=== PATIENT | male | born 1965 | race Caucasian/White ===

== ENCOUNTER 2017-07-08 17:08 | Inpatient (IN) ==
[2017-07-08] MEDS ORDERED: Aspirin 81 MG TAB.CHEW PO ONE (17:10)
[2017-07-08] MEDS ORDERED: *HR* Heparin 5,000 UNIT/ML VIAL IVP PRN ×2 (17:10→17:30)
[2017-07-08] MEDS ORDERED: *HR* Ticagrelor 90 MG TABLET PO ONE (17:10)
--- NOTE | 2017-07-08 17:13 | Emergency Department Note ---
Disposition Clinical Impression: ST elevation myocardial infarction (STEMI) Disposition: Home, Self-Care Condition: Critical General Adult HPI - General Chief complaint: ED Chest Pain Stated complaint: chest pain Time Seen by Provider: 07/08/17 17:09 Source: EMS Limitations: no limitations - History of Present Illness Pain Scale: 8 - Related Data Home Medications Medication Instructions Recorded Confirmed No Known Home Drugs 07/08/17 07/08/17 Allergies Allergy/AdvReac Type Severity Reaction Status Date / Time No Known Allergies Allergy Verified 07/08/17 17:09 Past Medical History - Past Medical History Medical history: Reports: hyperlipidemia Psychiatric history: Reports: no psych history - Social History Smoking Status: Current every day smoker Smokeless Tobacco Status: No Alcohol use: Reports: none Drug use: Reports: none Physical Exam - General Limitations: no limitations General appearance: alert, anxious Course Vital Signs Temperature 98.2 F 07/08/17 17:09 Pulse Rate 116 07/08/17 17:09 Respiratory Rate 22 07/08/17 17:09 Blood Pressure 131/110 07/08/17 17:09 O2 Sat by Pulse Oximetry 94 07/08/17 17:09 Temperature 98.2 F 07/08/17 17:09 Pulse Rate 110 07/08/17 17:27 Respiratory Rate 22 07/08/17 17:27 Blood Pressure 152/104 07/08/17 17:27 O2 Sat by Pulse Oximetry 96 07/08/17 17:27 Oxygen Delivery Oxygen Delivery Nasal Cannula Medical Decision Making - Lab Data Result diagrams: 07/08/17 17:10 07/08/17 17:10 Lab Results 07/08/17 07/08/17 07/08/17 Range/Units 17:10 17:10 17:10 WBC 11.8 H (4.3-11.1) K/mcL RBC 5.33 (4.19-5.50) M/mcL Hgb 16.0 (12.9-16.9) g/dL Hct 46.4 (37.5-50.1) % MCV 87.1 (83.0-100.0) fL MCH 30.0 (28.0-33.3) pg MCHC 34.5 (31.6-35.5) g/dL RDW 13.1 (11.5-14.5) % Plt Count 247 (140-400) K/mcL MPV 9.8 (9.4-12.4) fL Immature Gran % 0.4 (0-4) % Seg Neutrophils % 65.4 % Lymphocytes % 24.8 % Monocytes % 8.4 % Eosinophils % 0.6 % Basophils % 0.4 % Neutrophils # 7.7 (1.6-8.9) K/mcL Lymphocytes # 2.9 (0.6-4.6) K/mcL Monocytes # 1.0 (0.0-1.3) K/mcL Eosinophils # 0.1 (0.0-0.6) K/mcL Basophils # 0.1 (0.0-0.2) K/mcL PT 11.2 (9.4-12.1) Seconds INR 1.0 APTT 24.4 L (26.0-36.0) Seconds Sodium 138 (136-145) mEq/L Potassium 3.6 (3.5-5.1) mEq/L Chloride 106 (98-107) mEq/L Carbon Dioxide 19 L (23-29) mEq/L BUN 12 (6-20) mg/dL Creatinine 1.42 H (0.70-1.30) mg/dL Est GFR ( Amer) > 60 (> 60) Est GFR (Non-Af Amer) 52 L (> 60) BUN/Creatinine Ratio 8 (6-26) Glucose 144 H (70-105) mg/dL Calculated Osmolality 288 (280-300) Calcium 9.6 (8.6-10.3) mg/dL Magnesium 2.1 (1.6-2.6) mg/dL Troponin I < 0.03 (< 0.04) ng/mL Attestation Statement - Attestation Attestation: I examined this patient and my medical decision-making was reviewed with the Resident Physician. I agree with the documented findings, disposition and treatment plan as described except to the extent set forth below. [id number] time provided Patient arrives complaining of chest pain. STEMI pattern identified. STEMI alert activated. Patient to go to the [facility]. Protocol orders initiated
[2017-07-08] MEDS ORDERED: *HR* Ticagrelor 90 MG TABLET ONE (17:14)
[2017-07-08] MEDS ORDERED: Aspirin 81 MG TAB.CHEW ONE (17:15)
[2017-07-08] MEDS ORDERED: *HR* Heparin 5,000 UNIT/ML VIAL ONE (17:15)
[2017-07-08] MEDS ORDERED: 0.9 % Sodium Chloride 1,000 ML ONE ×2 (17:15→17:17)
[2017-07-08] MEDS ORDERED: Verapamil 5 MG/2 ML VIAL ONE (17:17)
[2017-07-08] MEDS ORDERED: *HR* FentaNYL (PF) 250 MCG/5 ML VIAL ONE (17:17)
[2017-07-08] MEDS ORDERED: *HR* Midazolam HCl 5 MG/5 ML VIAL IVP ONE (17:17)
[2017-07-08] MEDS ORDERED: *HR* Heparin 10,000 UNIT/10 ML VIAL ONE (17:18)
[2017-07-08] MEDS ORDERED: Heparin 1,000 UNITS/500 mL 500 ML ONE (17:18)
[2017-07-08] MEDS ORDERED: *HR* Morphine 2 MG/ML SYRINGE IVP ONE (17:18)
[2017-07-08] MEDS ORDERED: ISOVUE-370 200 ML INFUS..BTL IV ONE (17:18)
[2017-07-08] MEDS ORDERED: Nitroglycerin 1,000 MCG/10 ML VIAL IV ONE (17:18)
--- NOTE | 2017-07-08 17:19 | Emergency Department Note ---
Disposition Clinical Impression: ST elevation myocardial infarction (STEMI) Qualifiers: Involved coronary artery: unspecified coronary artery Qualified Code(s): I21.3 - ST elevation (STEMI) myocardial infarction of unspecified site Disposition: Home, Self-Care Condition: Critical Forms: ED Satisfaction Letter Time of Disposition: 17:33 Chest Pain HPI - General Chief Complaint: ED Chest Pain Stated Complaint: chest pain Time Seen by Provider: 07/08/17 17:09 Source: EMS Limitations: no limitations Vital Signs Reviewed: Yes Nursing Notes Reviewed: Yes - History of Present Illness HPI Narrative: Mr. Abdi presents from home by squad for evaluation of chest pain. Patient was doing yardwork we had acute abrupt onset left-sided sharp stabbing chest pain was nonradiating. Associated with dyspnea and nausea. Rated 10/10 at its onset. Patient received 324 mg aspirin chew in route as well as supplemental nitroglycerin 3 which improved his pain to 8/10. This was given after squad obtained at to lead EKG; they were unable to obtain a 12-lead. PMH: None Daily medications: None Severity scale (1-10): 8 - Related Data Allergies Allergy/AdvReac Type Severity Reaction Status Date / Time No Known Allergies Allergy Verified 07/08/17 17:09 Limitations: ROS unobtainable due to patients medical condition Chest Pain PMH - Past Medical History Medical history: Reports: hyperlipidemia Psychiatric history: Reports: no psych history - Social History Smoking Status: Current every day smoker Alcohol use: Reports: none Drug use: Reports: none Physical Exam Vital Signs Reviewed General: Patient is alert, oriented, and in acute distress-he is wincing in pain , holding his chest, diaphoretic Head: atraumatic, normocephalic Eye: normal appearance, no scleral icterus, no conjunctival injection ENT: mucous membranes moist, normal external ear exam Neck: normal inspection, trachea midline, full ROM Chest: normal inspection, symmetric chest rise Respiratory: Good respiratory effort. Bilateral breath sounds are clear without wheezing, crackles, or rhonchi. Cardiovascular: Tachycardic rate and regular. No clicks, rubs, gallops, or murmors. Normal heart sounds. Bilateral radial pulses 2/4 and equal. Musculoskeletal: Spontaneously moving all extremities. Skin: Cool, diaphoretic. Neuro: Alert and oriented x4. Sensation light touch intact. Psych: Patient's affect is appropriate for situation. - General Limitations: no limitations General appearance: alert, anxious Course Course Narrative: 12-lead EKG dated 08 Jul 2017 at 17:07 interpreted as sinus tachycardia with a rate of 116. Normal intervals. Normal axis. ST elevation through V2, V3, V4, V5, V6 7: At maximum elevation in V4. No reciprocal changes. No previous EKG for comparison. STEMI alert called. I discussed the patient with Dr. Cassidy will come evaluate the patient. He is already in facility. Patient taken [employer]. Vital Signs Temperature 98.2 F 07/08/17 17:09 Pulse Rate 116 07/08/17 17:09 Respiratory Rate 22 07/08/17 17:09 Blood Pressure 131/110 07/08/17 17:09 O2 Sat by Pulse Oximetry 94 07/08/17 17:09 Temperature 98.2 F 07/08/17 17:09 Pulse Rate 116 07/08/17 17:12 Respiratory Rate 19 07/08/17 17:12 Blood Pressure 131/110 07/08/17 17:12 O2 Sat by Pulse Oximetry 93 07/08/17 17:12 Oxygen Delivery Oxygen Delivery Room Air
[2017-07-08] MEDS ORDERED: *HR* Morphine 2 MG/ML SYRINGE ONE (17:20)
[2017-07-08 17:27] LABS: Basophils # 0.1 K/mcL (0.0-0.2); Basophils % 0.4 %; Eosinophils # 0.1 K/mcL (0.0-0.6); Eosinophils % 0.6 %; Hematocrit 46.4 % (37.5-50.1); Immature Granulocytes % 0.4 % (0-4); Lymphocytes # 2.9 K/mcL (0.6-4.6); Lymphocytes % 24.8 %; Mean Corpuscular HGB Conc 34.5 g/dL (31.6-35.5); Mean Corpuscular Volume 87.1 fL (83.0-100.0); Mean Platelet Volume 9.8 fL (9.4-12.4); Monocytes % 8.4 %; Neutrophils # 7.7 K/mcL (1.6-8.9); Platelet Count 247 K/mcL (140-400); Red Blood Count 5.33 M/mcL (4.19-5.50); Red Cell Distribution Width 13.1 % (11.5-14.5); Segmented Neutrophils % 65.4 %
[2017-07-08 17:32] LABS: Prothrombin Time 11.2 Seconds (9.4-12.1)
[2017-07-08 17:35] LABS: Activated Partial Thrombo Time 24.4 Seconds (26.0-36.0)
[2017-07-08] MEDS ORDERED: Ondansetron 4 MG/2 ML VIAL IVP PRN (17:38)
--- NOTE | 2017-07-08 17:38 | Pre-Sedation Evaluation ---
Pre-sedation evaluation - Pre-sedation checklist Date of procedure: 07/08/17 Procedure: 1740 Recent Vitals: Last Vital Signs Temp 98.2 F 07/08/17 17:09 Pulse 110 07/08/17 17:27 Resp 22 07/08/17 17:27 BP 152/104 07/08/17 17:27 Pulse Ox 96 07/08/17 17:27 H&P (including ROS) documented in medical record: Yes Previous reaction to sedatives/anesthetics: No Dietary Status: NPO after Midnight Airway Assessment: Patient can open mouth completely, TMJ function normal ASA Classification *see protocol: CLASS II-Mild systemic disease, E-EMERGENCY- Add to any of the above to indicate emergent Plan of Care: Pt appropriate candidate for procedure/moderate/conscious sedation , Risks/benefits of procedure/sedation discussed w/ patient/family, If not NPO; Risk of intake outweiged by necessity to perform procedure
[2017-07-08] MEDS ORDERED: Tirofiban 12.5 MG/250ML 12.5 MG/250 ML BAG IVC SCH (17:45)
[2017-07-08 17:55] LABS: BUN/Creatinine Ratio 8 (6-26); Blood Urea Nitrogen 12 mg/dL (6-20); Calcium 9.6 mg/dL (8.6-10.3); Carbon Dioxide 19 mEq/L (23-29); Chloride 106 mEq/L (98-107); Glucose 144 mg/dL (70-105); Magnesium 2.1 mg/dL (1.6-2.6); Osmolality,Calculated 288 (280-300); Potassium 3.6 mEq/L (3.5-5.1); Sodium 138 mEq/L (136-145); Troponin I < 0.03 ng/mL (< 0.04); eGFR For African Americans > 60 (> 60); eGFR For Non-African Americans 52 (> 60)
[2017-07-08] MEDS ORDERED: Nitroglycerin 25 MG/250 ML INFUS..BTL IVC ONE (18:01)
[2017-07-08] MEDS ORDERED: *HR* Midazolam HCl 2 MG/2 ML VIAL ONE (18:08)
[2017-07-08] MEDS ORDERED: *HR* Morphine 2 MG/ML SYRINGE IVP PRN (18:17)
--- NOTE | 2017-07-08 18:21 | Cardiology History & Physical ---
Date of Encounter: 07/08/17 Time of Encounter: 18:00 Assessment and Plan (1) ST elevation myocardial infarction (STEMI) Current Visit: Yes Status: Acute A/R/B of emergent LHC discussed with patient, he is aware and agreeable with proceeding. Aspirin, brilinta, heparin, TTE. Cardiac rehab Total critical care time: 1 hour. The assessment and plan as outlined above was discussed with the patient and/or family members who expressed understanding and agreement. All questions were answered. Qualifiers: Involved coronary artery: LAD coronary artery Qualified Code(s): I21.02 - ST elevation (STEMI) myocardial infarction involving left anterior descending coronary artery (2) FRANK (acute kidney injury) Current Visit: Yes Status: Acute FRANK not noted until after LHC when labs returned. NS will be given. The assessment and plan as outlined above was discussed with the patient and/or family members who expressed understanding and agreement. All questions were answered. History of Present Illness Chief complaint: chest pain HPI: Mr. Abdi is a 52 year old male with no previous cardiac history presents with 10 /10 chest pain radiating across chest that started out as dull pressure then with sharp pain and dyspnea. Improved minimally and temporarily with NTG and aspirin. EKG shows anterolateral STEMI and emergently taken to [facility]. Past Med Surg Social Fam HX - Past Medical History Medical history: hyperlipidemia Psychiatric history: no psych history - Social History Smoking Status: Current every day smoker Smokeless Tobacco Status: No Alcohol use: none Drug use: none Medications and Allergies No Known Home Drugs 07/08/17 [History] 3 Allergy/AdvReac Type Severity Reaction Status Date / Time No Known Allergies Allergy Verified 07/08/17 17:09 All Systems Review: The remainder of the systems were reviewed and are negative - Constitutional Constitutional: no chills, no fever(s) - EENT Eyes: no blurred vision, no loss of vision Nose, mouth and throat: no bleeding gums, no epistaxis - Cardiovascular Cardiovascular: chest pain at rest, chest pain with exertion - Respiratory Respiratory: no hemoptysis, no wheezing - Gastrointestinal Gastrointestinal: no hematemesis, no hematochezia - Genitourinary Genitourinary: no hematuria, no nocturia - Musculoskeletal Musculoskeletal: no abnormal gait, no myalgias - Integumentary Integumentary: no erythema, no rash - Neurological Neurological: no abnormal speech, no syncope - Psychiatric Psychiatric: no hallucinations, no panic attacks - Hematological/Lymphatic Hematologic/Lymphatic: no easy bleeding, no easy bruising Physical Examination Vital Signs, Last 4 Hours Temp Pulse Resp BP Pulse Ox 07/08/17 17:27 110 22 152/104 96 07/08/17 17:20 112 11 131/110 97 07/08/17 17:12 116 19 131/110 93 07/08/17 17:09 98.2 F 116 22 131/110 94 General: Conversant, Other (mild distress) HEENT: Atraumatic Neck: No JVD Cardiac: Reg Rate and Rhythm Lungs: Normal Breath Sounds Neuro: Alert and responsive Abdomen: Soft Skin: No rashes noted on visualized skin Musculoskeletal: No Chest Wall Tenderness Extremities: No Edema Results 07/08/17 17:10 07/08/17 17:10 Lab Results 07/08/17 07/08/17 07/08/17 17:10 17:10 17:10 WBC 11.8 H Hgb 16.0 Hct 46.4 Plt Count 247 INR 1.0 APTT 24.4 L Sodium 138 Potassium 3.6 Chloride 106 Carbon Dioxide 19 L BUN 12 Creatinine 1.42 H Glucose 144 H Calcium 9.6 Magnesium 2.1 Troponin I < 0.03 - EKG Interpretation EKG results cardiology: personally reviewed, sinus rhythm (anterolateral current of injury)
[2017-07-08] MEDS ORDERED: Nitroglycerin 25 MG/250 ML INFUS..BTL IVC SCH (18:30)
--- NOTE | 2017-07-08 18:33 | Invasive Diagnostic Lab Proc ---
Name: Juan Jose Abdi Date of Study: 07/08/2017 Date: 1965 Ht: 70.9in Medical Record#: [id number] Age: 52 Wt: 249.12lb Gender: Male BSA: 2.31 Order #: [id number] BMI: 34.88 Physicians Procedure Physician: Reynaldo Cassidy MD, [facility] Referring MD: Referring MD: Staff Name Position Time In Desi Bella RN Monitor 05:39 PM Luz Maria Escobar RN Wash Box Operator 05:39 PM Heydi Nuno RT (R) Scrub 05:40 PM Indications Indication STEMI Procedures Performed Procedure L HRT ARTERY/VENTRICLE ANGIO PRQ CARD AMARIS STENT W/ANGIO 1 VSL Pre-Procedure Checklist Informed consent is complete signed and on chart. H&P is on chart. ID band is on and ID verified with patient. Patient NPO for procedure The procedure was described for the patient and questions were answered. Blood Pressure: 131/110 ECG is on chart. Rhythm: Sinus Tachycardia Plan of Care Patient will tolerate the procedure without complications. Adequate level of comfort will be maintained. Hemodynamics will remain stable Patient will recover from procedure without complications. Respiratory function will be maintained. Cardiac rhythm will remain stable. Patient temperature will be maintained. Patient and/or family have verbalized understanding of the procedure. Patient Education Chief Complaint/Reason for Test: Cardiac Cath Developmental Category: Adult (18-64 years) Developmentally Appropriate for Age: Yes Learning Barriers: None Education Needs: Procedure Education Method: Verbal Information Taught: Cardiac Cath Educational Evaluation: Able to repeat information Intravenous Access Time IV Size Location DC'd Fluid/Drip Rate Units RN 05:21 PM 18g 1 1/4" Patent On Arrival Rt Luz Maria Amaya RN 05:21 PM 18g 1 1/4" Patent On Arrival Lt Luz Maria Amaya RN Allergies No Known Allergies Vital Signs Time BP (mmHg) HR (bpm) O2 Sat. RR (bpm) LOC 05:21 PM 131 / 110 116 93 % 19 5 = Fully awake and oriented or at pre-proc level 05:41 PM / % 5 = Fully awake and oriented or at pre-proc level 05:41 PM / % 5 = Fully awake and oriented or at pre-proc level 05:56 PM / % 5 = Fully awake and oriented or at pre-proc level 05:38 PM 129 / 101 103 99 % 05:43 PM 143 / 99 101 98 % 05:48 PM 153 / 91 134 97 % 05:53 PM 146 / 89 105 97 % 05:58 PM 153 / 87 101 99 % 06:03 PM 134 / 79 101 97 % 06:08 PM 140 / 83 102 96 % Procedural Medications Time Medication Dose Units Method Given By 05:41 PM Oxygen 2 L/min nasal cannula Luz Maria Escobar RN 05:43 PM Lidocaine 2% 0.5 ml Subcutaneous Reynaldo Cassidy MD, FAC 05:43 PM Versed 2 mg Intravenous 50 05:43 PM Fentanyl 50 mcg Intravenous Luz Maria Escobar RN 05:44 PM Heparin 1000 units Nitroglycerin 200 mcg Verapamil 2.5 mg Intraarterial Reynaldo Cassidy MD, FACC 05:45 PM Versed 2 mg Intravenous Luz Maria Escobar RN 05:45 PM Fentanyl 50 mcg Intravenous Luz Maria Escobar RN 05:51 PM Aggrastat Bolus: 58 ml Intravenous Luz Maria Escobar RN 05:51 PM Aggrastat 12.5mg/250ml 21 ml/hr Intravenous Luz Maria Escobar RN 05:51 PM Nitroglycerin 200 mcg Intracoronary Reynaldo Cassidy MD 05:52 PM Versed 1 mg Intravenous Luz Mraia Escobar RN 05:52 PM Fentanyl 50 mcg Intravenous Luz Maria Escobar RN 05:59 PM Heparin 2000 units Intravenous Luz Maria Escobar RN 06:05 PM Nitroglycerin 10 mcg/min Intravenous Luz Maria Escobar RN 06:07 PM Versed 2 mg Intravenous Luz Maria Escobar RN 06:07 PM Fentanyl 25 mcg Intravenous Luz Maria Escobar RN 06:10 PM Nitroglycerin 20 mcg/min Intravenous Luz Maria Escobar RN Marvin Score Preprocedure Postprocedure Activity 2- Moves 4 extremities sustained head lift Activity 2- Moves 4 extremities sustained head lift Circulation 2- SBP +/= 20 points of pre-anesthetic level Circulation 2- SBP +/= 20 points of pre-anesthetic level Consciousness 2- Awake and alert oriented x 3 Consciousness 2- Awake and alert oriented x 3 O2 Saturation 2- Able to maintain O2 satruation of 92% on room air O2 Saturation 2- Able to maintain O2 satruation of 92% on room air Respiratory 2- Able to deep breathe and cough well Respiratory 2- Able to deep breathe and cough well Total Score 10 Total Score 10 Contrast Agent: Isovue Diagnostic Contrast: 129 ml Total Contrast: 129 ml Fluoro Dose: 639 mGy Activated Clotting Time Time Seconds to Clot 05:59 PM 167 Procedure Log Time Note Enter By 05:33 PM Pt arrived to quality control lab tech 2 at 17:33 [email or web address] 05:34 PM Physicyasmany paged/called 17:34. [email or web address] 05:34 PM Physican responded and notified patient is ready 17:34 [email or web address] 05:34 PM Physician arrived 17:34 [email or web address] 05:35 PM Procedure start 17:35 tsoummers 05:36 PM CathStat 05:36 PM Vitals capture started with the following parameters, Patient=Adult, Interval=5 min, Initial Vicbiegd=896 mmHg, Deflation Rate=5 mmHg, Cuff placed on Right Arm 05:37 PM Vitals capture started with the following parameters, Patient=Adult, Interval=5 min, Initial Pfujszmd=226 mmHg, Deflation Rate=5 mmHg, Cuff placed on Right Arm 05:38 PM RJ=235 bpm, HBKZ=860/101 mmhg, SpO2=99.0 %, Comment=ST 05:39 PM Desi Bella RN Position: Monitor Time in: 17:34 oummers 05:40 PM Luz Maria Escobar RN Position: Wash Box Operator Time in: 17:34 oumm 05:40 PM Heydi Nuno RT (R) Position: Scrub Time in: 17:34 [email or web address] 05:40 PM Patient charges- Angio tray pack, Navilyst 3mm J, Pulse Oximetry and ACIST tubing and transducer tsoumm 05:40 PM Hair removed from procedure site in procedure lab using clippers. Right wrist prepped with Chloraprep by Desi Bella RN, then patient was draped. Skin intact. [email or web address] 05:41 PM Meet and greet completed oumm 05:41 PM Sign in performed according to hospital policy. [email or web address] 05:41 PM Time: 17:41 Oxygen on at 2 L/min per nasal cannula by Luz Maria Escobar RN [email or web address] 05:41 PM Time: 17:41 Patient comfortable and pain free: No tsoummers 05:41 PM Time: 17:41LOC: 5 = Fully awake and oriented or at pre-proc level tsoummers 05:41 PM Recorded ECG: LD=082 Condition=Condition 1 05:41 PM Pressure channel 1 zero failed. 05:41 PM Pressure channel 1 zero failed. 05:42 PM Pressure channel 1 zero failed. 05:42 PM Pressure channel 1 zero failed. 05:42 PM Pressure channel 1 zeroed. 05:42 PM Clinical Presentation: STEMI or equivalent 05:43 PM JS=669 bpm, UVOL=952/99 mmhg, SpO2=98.0 %, Comment=ST 05:43 PM Time out performed according to hospital policy 05:43 PM Time: 17:43 0.5 ml Lidocaine 2% to right radial Subcutaneous Given by Reynaldo Cassidy MD, [facility] mm 05:43 PM Time: 17:43 Versed 2 mg Intravenous Given by 50 tsjace 05:44 PM Time: 17:43 Fentanyl 50 mcg Intravenous Given by Luz Maria Escobar RN [email or web address] 05:44 PM Access obtained by percutaneous puncture. 6Fr 10cm Terumo Glidesheath sheath placed in right Radial artery. [id number] 05:44 PM Time: 17:44 Patient given 1,000 units Heparin, 200 mcg Nitroglycerin, and 2.5 mg Verapamil Intraarterial by Reynaldo Cassidy MD, [facility]. This is given to reduce risk of vessel spasm and thrombosis. mm 05:44 PM patient received 4000unites heparin IVP per ED mm 05:44 PM 0.035 260cm Navilyst 3mmJ wire [id number] 05:45 PM Time: 17:45 Versed 2 mg Intravenous Given by Luz Maria Escobar RN jace 05:45 PM Time: 17:45 Fentanyl 50 mcg Intravenous Given by Luz Maria Escobar RN 05:45 PM Inflation device was opened. tsmm 05:45 PM 6Fr CLS 3.0 Runway guide catheter was used to cannulate the PCI vessel successfully. reused? No tsoummers 05:45 PM J wire removed mm 05:46 PM Recorded Pressure: Ao, HB=589, Condition=Condition 1 (Aorta) Ao 118/82/100 05:46 PM LCA angiography performed in multiple views. mm 05:48 PM .[address] [place] 190cm guide wire across target lesion- successful. reused? No tsoummers 05:48 PM OT=092 bpm, SMQX=230/91 mmhg, SpO2=97.0 %, Comment=ST 05:49 PM 3.0mm x 20mm Synergy drug-eluting stent across target lesion- successful Lot #[id number] mm 05:50 PM Stent deployed @ 16 she for 18 seconds tsoumm 05:50 PM Lesion found in Proximal LAD. Pre Stenosis: 90 Pre NATHANIEL Flow: 3: Complete and Brisk Flow/Perfusion david 05:50 PM Proximal Left Anterior Descending Coronary Artery with 90% stenosis. If graft is supplying this territory, 0 % stenosis. jace 05:51 PM Time: 17:51 Aggrastat Bolus: 58 ml Intravenous Given by Luz Maria Escobar RN Hernandes pump [place] 05:51 PM Time: 17:51 Aggrastat 12.5mg/250ml 21 ml/hr Intravenous Given by Luz Maria Escobar RN Hernandes pump imanigricel 05:51 PM Stent delivery system removed intact. gricel 05:52 PM Recorded Pressure: Ao, TU=249, Condition=Condition 1 (Aorta) Ao 112/66/86 05:52 PM Time: 17:51 Nitroglycerin 200 mcg Intracoronary Given by Reynaldo Cassidy MD jace 05:52 PM Time: 17:52 Versed 1 mg Intravenous Given by Luz Maria Escobar RN 05:52 PM Time: 17:52 Fentanyl 50 mcg Intravenous Given by Luz Maria Escobar RN 05:53 PM IS=915 bpm, IIXO=138/89 mmhg, SpO2=97.0 %, Comment=ST 05:56 PM Time: 17:41 Patient comfortable and pain free: Yes david 05:56 PM Time: 17:41LOC: 5 = Fully awake and oriented or at pre-proc level mmgricel 05:56 PM Guide wire removed intact. gricel 05:57 PM Guide catheter removed intact. jace 05:58 PM 5Fr TIG catheter inserted over the wire DNC gricel 05:58 PM GX=384 bpm, OTIN=037/87 mmhg, SpO2=99.0 %, Comment=ST 05:58 PM RCA angiography performed in multiple views. gricel 05:58 PM Recorded Pressure: Ao, PN=912, Condition=Condition 1 (Aorta) Ao 123/80/101 05:59 PM Coronary Dominance: right [place] 05:59 PM At 17:59 the ACT was 167 seconds. [place] 06:00 PM Time: 17:59 Heparin 2000 units Intravenous Given by Luz Maria Escobar RN 06:00 PM Recorded Pressure: Ao, II=041, Condition=Condition 1 (Aorta) Ao 115/82/98 06:01 PM Lesion found in Mid Circumflex. Pre Stenosis: 60 Pre NATHANIEL Flow: [facility] 06:01 PM Circumflex, Obtuse Marginal, Left Posterior Descending, and Left Posterolateral Coronary Arteries with 60 % stenosis. If graft is supplying this area, 0 % stenosis [facility] 06:03 PM PI=051 bpm, FDZR=191/79 mmhg, SpO2=97.0 %, Comment=ST 06:05 PM Time: 18:05 Nitroglycerin 10 mcg/min Intravenous Given by Luz Maria Escobar RN 06:05 PM Catheter removed [facility] 06:05 PM 5Fr Pigtail [facility] PM Bolus angiogram of left Ventricle complete: 10 ml/sec for a total of 30 mls [facility] 06[facility]06 PM Pressure channel 1 zeroed. 06:06 PM Recorded Pressure: LV, RO=406, Condition=Condition 1 (Left Ventricle) LV 152/21/35 06:07 PM Recorded Pressure: LV, Ao, HR=99, Condition=Condition 1 (Left Ventricle) LV 161/13/52, (Aorta) Ao 155/98/124 06:07 PM Time: 18:07 Versed 2 mg Intravenous Given by Luz Maria Escobar RN 06:07 PM Time: 18:07 Fentanyl 25 mcg Intravenous Given by Luz Maria Escobar RN 06:07 PM [facility] 06:08 PM KP=152 bpm, WAVI=456/83 mmhg, SpO2=96.0 %, Comment=ST 06:08 PM Procedure completed at 18:08 [facility] PM Sign out completed: Radiation Dose 638.99 mGy Fluoro Time: 4.9 Isovue 370 - 200ml contrast 129 ml given by Reynaldo Cassidy MD, [facility]. Complications: NoneCardiac Rehab Consult needed: YesConfirmed administered medications: Yes [facility] 06[facility] PM Isovue 370 - 200ml,2 Bottle(s) used. [facility] 06:10 PM Arterial sheath pulled, Vasc Band closure device used and was Successful S/N. mmgricel 06:10 PM 10 ml air in Vasc Band. 06:11 PM Time: 18:10 Nitroglycerin titrated up to 20 mcg/min Intravenous Given by Luz Maria Escobar RN jace 06:11 PM Time: 17:56 Patient comfortable and pain free: Yes 06:11 PM Time: 17:56LOC: 5 = Fully awake and oriented or at pre-proc level tsoummgricel 06:12 PM Post ECG Sinus Tachycardia tsoummgricel 06:12 PM Post Blood Pressure 140/83 tsoummgricel 06:12 PM 18:12 Post Pulses Rt Radial 1+ gricel 06:13 PM Information taught Cardiac Cath, PCI, and Vasc Band [facility] 06:13 PM Education needs Procedure, Plan of Care, and Responsibilities of Patient in Care mmgricel 06:13 PM Learning barriers :None [facility] 06:13 PM Education Methods Verbal [facility] 06:13 PM Education evaluation Able to repeat information [facility] 06:13 PM Site status No bleeding/hematoma - Rt Wrist as reported by Heydi Nuno RT (R) at 18:13 [facility] 06:13 PM Plavix, Effient or Brilinta given Yes, Given per ED 90mg Dr. Cassidy aware [facility] 06:14 PM Complications: None mmgricel 06:14 PM Family placed in consult room. tsoudavid 06:14 PM Fluoro Time: 4.9 imanimmgricel 06:14 PM Isovue 370 - 200ml contrast [address] Cassidy. [facility] 06:14 PM Radiation Dose 638.99 mGy [facility] 06:21 PM Report given to Edita DAVIS Pt taken to ICU Room #12. 18:20 [facility] Complications Complication None Hemodynamics Pressures Site Systolic/A Wave Diastolic/V Wave Mean AO 118 82 100 AO 112 66 86 AO 123 80 101 AO 115 82 98 LV 152 21 35 LV 161 13 52 AO 155 98 124 Post Procedure Information Blood Pressure: 140/83 mmHg Rhythm: Sinus Tachycardia Post procedural instructions were given Closure Device Time Device Success/Fail 07/08/2017 6:14:00 PM Mechanical Compression Successful Site Checks Time Location Status Staff Sheath In? Note 06:13 PM Rt Wrist No bleeding/hematoma Heydi Nuno RT (R) Pulses Time Site Pre-Procedure Post-Procedure Note 6:12:00 PM Rt Radial 1+ Updated by Desi Bella RN on 07/08/2017 6:25:29 PM electronically signed on 07/08/2017 6:26:01 PM with status of Final
[2017-07-08] MEDS: 0.9 % Sodium Chloride 1,000 ML IVC SCH (18:47)
[2017-07-08] MEDS ORDERED: *HR* Ticagrelor 90 MG TABLET PO SCH (21:00)
[2017-07-09 04:28] LABS: Basophils % 0.2 %; Eosinophils # 0.1 K/mcL (0.0-0.6); Eosinophils % 0.4 %; Hematocrit 42.6 % (37.5-50.1); Immature Granulocytes % 0.4 % (0-4); Lymphocytes # 1.4 K/mcL (0.6-4.6); Lymphocytes % 10.4 %; Mean Corpuscular HGB Conc 33.6 g/dL (31.6-35.5); Mean Corpuscular Hemoglobin 29.7 pg (28.0-33.3); Mean Corpuscular Volume 88.6 fL (83.0-100.0); Mean Platelet Volume 9.9 fL (9.4-12.4); Monocytes # 0.9 K/mcL (0.0-1.3); Monocytes % 6.4 %; Neutrophils # 11.3 K/mcL (1.6-8.9); Platelet Count 192 K/mcL (140-400); Red Blood Count 4.81 M/mcL (4.19-5.50); Red Cell Distribution Width 13.2 % (11.5-14.5); Segmented Neutrophils % 82.2 %
[2017-07-09 04:36] LABS: Hemoglobin 14.3 g/dL (12.9-16.9)
[2017-07-09 04:50] LABS: BUN/Creatinine Ratio 11 (6-26); Blood Urea Nitrogen 10 mg/dL (6-20); Calcium 8.7 mg/dL (8.6-10.3); Carbon Dioxide 24 mEq/L (23-29); Chloride 107 mEq/L (98-107); Glucose 106 mg/dL (70-105); Osmolality,Calculated 283 (280-300); Potassium 4.4 mEq/L (3.5-5.1); Sodium 137 mEq/L (136-145); eGFR For African Americans > 60 (> 60); eGFR For Non-African Americans > 60 (> 60)
[2017-07-09] MEDS ORDERED: *HR* Enoxaparin 40 MG/0.4 ML SYRINGE SQ SCH (06:00)
[2017-07-09] MEDS: 0.9 % Sodium Chloride 1,000 ML IVC SCH (06:05)
[2017-07-09] MEDS ORDERED: Nicotine 21 MG PATCH.TD24 TD SCH (09:00)
[2017-07-09] MEDS ORDERED: Aspirin 81 MG TAB.CHEW PO SCH (09:00)
--- NOTE | 2017-07-09 09:15 | Cardiology Progress Note ---
Date of Encounter: 07/09/17 Time of Encounter: 08:30 Assessment and Plan (1) STEMI (ST elevation myocardial infarction) Current Visit: Yes Status: Acute Acute anterolateral STEMI s/p successful PTCA/AMARIS to pLAD. TTE pending. Vitals, labs stable this AM. No arrhythmia noted per telemetry review. Chest pain free upon exam. Cardiac rehab, DAPT (asa + plavix), BB, and statin. Post PCI education provided. Plan to transfer to later this afternoon. Continue to monitor. Qualifiers: Involved coronary artery: LAD coronary artery Qualified Code(s): I21.02 - ST elevation (STEMI) myocardial infarction involving left anterior descending coronary artery (2) Tobacco abuse Current Visit: Yes Status: Acute Smoking cessation counseling provided. Nicotine patch as inpt. (3) HLD (hyperlipidemia) Current Visit: Yes Status: Acute Reports non-adherence to statin as outpt. Resume statin. Qualifiers: Hyperlipidemia type: mixed hyperlipidemia Qualified Code(s): E78.2 - Mixed hyperlipidemia (4) FRANK (acute kidney injury) Current Visit: Yes Status: Acute Presented with FRANK. SCr now normal. Continue to monitor. Discussion w patient/family: The assessment and plan as outlined above was discussed with the patient and/or family members who expressed understanding and agreement. All questions were answered. Thank you for involving us in the care of your patient. Please call with any questions. The patient will be discussed and reviewed with Dr. Cassidy; changes to be made accordingly. Subjective Principal diagnosis: STEMI Interval history: Seen and examined. Complains of "mild" chest soreness this AM. No other symptoms reported. No issues with right radial cath site. Objective Vital Signs, Last 4 Hours Temp Pulse Resp BP Pulse Ox 07/09/17 08:10 98.6 F 07/09/17 06:00 78 16 137/90 94 General: Conversant, No Apparent Distress HEENT: Atraumatic, Normocephaly Cardiac: Reg Rate and Rhythm, Normal S1 and S2 Lungs: Normal Breath Sounds Neuro: Alert and responsive Abdomen: Soft Skin: No rashes noted on visualized skin Musculoskeletal: No Chest Wall Tenderness Extremities: No Edema, Normal Pulses Other: right radial cath site: +2 pulses, brisk refill. Dressing C/D/I Results 07/09/17 04:17 07/09/17 04:17 Lab Results 07/09/17 07/09/17 04:17 04:17 WBC 13.7 H Hgb 14.3 D Hct 42.6 Plt Count 192 Sodium 137 Potassium 4.4 Chloride 107 Carbon Dioxide 24 BUN 10 Creatinine 0.93 Glucose 106 H Calcium 8.7 Active Medications Acetaminophen (Tylenol) 500 mg PO Q6HR PRN PRN Reason: Mild Pain Stop: 01/07/18 17:39 Aspirin (Aspirin) 81 mg PO DAILY ED Stop: 01/08/18 09:01 Clopidogrel Bisulfate (Plavix) 75 mg PO DAILY ED Stop: 01/09/18 09:01 Diphenhydramine HCl (Benadryl) 25 mg PO HS PRN PRN Reason: Insomnia Stop: 01/07/18 18:14 Enoxaparin Sodium (Lovenox) 40 mg SQ 0600 ED PRN Reason: Protocol Stop: 01/08/18 06:01 Nitroglycerin (Nitroglycerin Premix 25 Mg/250 Ml) 25 mg in 250 mls @ 3 mls/hr IVC .Q24H ED; 5 MCG/MIN PRN Reason: Protocol Stop: 01/07/18 18:31 Last Titration: 07/09/17 03:39 Dose: 0 mcg/min, 0 mls/hr Sodium Chloride (0.9 % Sodium Chloride) 1,000 mls @ 100 mls/hr IVC .Q10H ED Stop: 01/07/18 18:31 Last Admin: 07/09/17 06:05 Dose: 100 mls/hr Metoprolol Tartrate (Lopressor) 25 mg PO BID ED Stop: 01/07/18 21:01 Last Admin: 07/08/17 21:12 Dose: 25 mg Nicotine (Nicoderm) 21 mg TD DAILY ED PRN Reason: Protocol Stop: 01/08/18 09:01 Ondansetron HCl (Zofran) 4 mg IVP Q8HR PRN PRN Reason: Nausea And Vomiting Stop: 01/07/18 17:39 Last Admin: 07/08/17 18:43 Dose: 4 mg Rosuvastatin Calcium (Crestor) 40 mg PO HS ED Stop: 01/07/18 21:01 Last Admin: 07/08/17 21:13 Dose: 40 mg - Imaging and Cardiology Echo: pending Cardiac cath: report reviewed Other Results: 12 hour tele: Avg HR=82 SR. No significant event noted. - EKG Interpretation EKG results cardiology: personally reviewed Consult Discharge Plan - Plan Referrals: Alexandra Yun MD [Primary Care Provider] -
[2017-07-09] MEDS ORDERED: 0.9 % Sodium Chloride 1,000 ML IVC SCH (12:39)
[2017-07-09] MEDS ORDERED: Ondansetron 4 MG/2 ML VIAL IVP PRN (12:39)
[2017-07-09] MEDS ORDERED: Nitroglycerin 25 MG/250 ML INFUS..BTL IVC SCH (12:39)
[2017-07-10 05:22] LABS: Basophils % 0.2 %; Eosinophils # 0.1 K/mcL (0.0-0.6); Eosinophils % 1.1 %; Hematocrit 44.5 % (37.5-50.1); Immature Granulocytes % 0.2 % (0-4); Lymphocytes % 23.6 %; Mean Corpuscular HGB Conc 33.7 g/dL (31.6-35.5); Mean Corpuscular Hemoglobin 29.9 pg (28.0-33.3); Mean Corpuscular Volume 88.6 fL (83.0-100.0); Mean Platelet Volume 10.1 fL (9.4-12.4); Monocytes # 1.1 K/mcL (0.0-1.3); Monocytes % 12.5 %; Neutrophils # 5.3 K/mcL (1.6-8.9); Platelet Count 188 K/mcL (140-400); Red Blood Count 5.02 M/mcL (4.19-5.50); Red Cell Distribution Width 13.3 % (11.5-14.5); Segmented Neutrophils % 62.4 %
[2017-07-10 05:36] LABS: BUN/Creatinine Ratio 12 (6-26); Blood Urea Nitrogen 11 mg/dL (6-20); Calcium 8.8 mg/dL (8.6-10.3); Carbon Dioxide 21 mEq/L (23-29); Chloride 108 mEq/L (98-107); Glucose 102 mg/dL (70-105); Osmolality,Calculated 292 (280-300); Potassium 4.1 mEq/L (3.5-5.1); Sodium 141 mEq/L (136-145); eGFR For African Americans > 60 (> 60); eGFR For Non-African Americans > 60 (> 60)
[2017-07-10] MEDS ORDERED: *HR* Enoxaparin 40 MG/0.4 ML SYRINGE SQ SCH (06:00)
[2017-07-10 06:35] VITALS: BP 136/80
[2017-07-10] MEDS ORDERED: Nicotine 21 MG PATCH.TD24 TD SCH (09:00)
[2017-07-10] MEDS ORDERED: Aspirin 81 MG TAB.CHEW PO SCH (09:00)
--- NOTE | 2017-07-10 11:11 | Discharge Summary ---
Date of Encounter: 07/10/17 Time of Encounter: 10:30 - Discharge Diagnosis (1) STEMI (ST elevation myocardial infarction) Priority: Primary Status: Acute Qualifiers: Involved coronary artery: LAD coronary artery Qualified Code(s): I21.02 - ST elevation (STEMI) myocardial infarction involving left anterior descending coronary artery (2) FRANK (acute kidney injury) Priority: Secondary Status: Acute (3) HLD (hyperlipidemia) Priority: Secondary Status: Chronic Qualifiers: Hyperlipidemia type: mixed hyperlipidemia Qualified Code(s): E78.2 - Mixed hyperlipidemia (4) Tobacco abuse Priority: Secondary Status: Chronic - Hospital Course Hospital course: Mr. Abdi is a 52 year old male who presented with chest pain and was found to have an acute PR and acute kidney injury. He underwent emergent LHC and received successful PTCA/AMARIS to pLAD. There was a 50% stenosis in the mCx artery remaining. TTE completed and showed EF 45-50% with mild segmental systolic dysfunction. No significant valvular disease seen. . Kidney function returned to normal the following day. There was no complication from the procedure. Denies recurrent chest pain. No complications from right radial access site. Importance of DAPT with asa and plavix uninterrupted for minimum of one year discussed and he voiced understanding. Continue statin and BB. Activity restrictions reviewed as stated above. Cardiac rehab phase one ordered. Out-patient f/u with [facility] will be coordinated in one week. Smoking cessation discussed. Nicotine patch given per patient request to assist with cessation. - Time Spent with Patient Total time spent providing and/or coordinating discharge services: - Discharge Medications Prescriptions: Aspirin 81 mg PO DAILY #30 tab.chew Clopidogrel [Plavix] 75 mg PO DAILY 30 Days #30 tablet Lisinopril [Zestril] 5 mg PO DAILY 30 Days #30 tablet Metoprolol [Lopressor] 50 mg PO BID #60 tablet Nicotine Patch [Nicoderm] 21 mg TD DAILY 14 Days #14 patch.td24 Rosuvastatin [Crestor] 40 mg PO HS #30 tablet Home Medications: Aspirin 81 mg PO DAILY #30 tab.chew 07/10/17 [Rx] Clopidogrel [Plavix] 75 mg PO DAILY 30 Days #30 tablet 07/10/17 [Rx] Lisinopril [Zestril] 5 mg PO DAILY 30 Days #30 tablet 07/10/17 [Rx] Metoprolol [Lopressor] 50 mg PO BID #60 tablet 07/10/17 [Rx] Nicotine Patch [Nicoderm] 21 mg TD DAILY 14 Days #14 patch.td24 07/10/17 [Rx] Rosuvastatin [Crestor] 40 mg PO HS #30 tablet 07/10/17 [Rx] Allergies/Adverse Reactions: 3 Allergy/AdvReac Type Severity Reaction Status Date / Time No Known Allergies Allergy Verified 07/08/17 17:09 Date of admission: 07/08/17 18:03 Primary care physician: Alexandra Yun Discharging clinician: Best Armando Physical Examination Vital Signs Temp Pulse Resp BP Pulse Ox 07/10/17 06:33 98.5 F 80 15 130/83 95 07/10/17 00:00 98.8 F 79 15 118/71 07/09/17 20:20 95 07/09/17 18:23 97.8 F 95 16 168/95 95 07/09/17 16:22 98.2 F 07/09/17 12:00 79 14 151/95 95 Intake and Output 07/09/17 07/10/17 07/10/17 23:59 07:59 15:59 Intake Total 360 / 360 200 / 200 Output Total 300 / 300 0 / 0 Balance 60 / 60 200 / 200 Intake: Oral 360 / 360 200 / 200 Output: Urine 300 / 300 0 / 0 Other: Stool Size Moderate # Voids 2 3 Weight 107.9 kg Patient Weight 07/10/17 23:59 Weight 107.9 kg General: Conversant, No Apparent Distress HEENT: Atraumatic, Normocephaly, Mucus Membranes Moist Neck: No JVD, Normal carotid pulses Cardiac: Reg Rate and Rhythm, Normal S1 and S2, No Murmur Lungs: Normal Breath Sounds, No Wheeze, Rales, Rhonchi Neuro: Alert and responsive, No focal deficits noted Abdomen: Soft, Non-Tender Skin: No rashes noted on visualized skin Musculoskeletal: No Chest Wall Tenderness Extremities: No Clubbing, No Cyanosis, No Edema, Normal Pulses, Other (right radial access without hematoma. ) - Patient Status Disposition: Home, Self-Care Condition: Good Functional capacity at discharge: independent ambulation Overall status at discharge: patient is progressing back to baseline - Discharge Instructions Follow Up With: Alexandra Yun MD [Primary Care Provider] - 07/20/17 11:15 am Additional Instructions: RISK FACTORS: STOP SMOKING: If you smoke, STOP. Smoking or tobacco use significantly increases your risk of heart disease because nicotine causes the arteries to narrow or constrict. It also causes fats to stick to the artery. Your chances of having a heart attack are greatly increased if you continue to smoke. For more information, call the education line for smoking cessation 9-908-CVPFTSX EAT A LOW FAT/CHOLESTEROL/SODIUM DIET: This diet may help reduce your chances of having a heart attack. LIFTING: With affected extremity: Avoid bending, pushing off and lifting more than 2 pounds for 24 hours The following 48 hours, avoid lifting anything more than 5 pounds Avoid strenuous activity or repetitive motions ACTIVITY: You may walk or climb stairs as tolerated You can resume sexual activity as tolerated In general, you are encouraged to engage in a minimum of 30 minutes or more of moderate intensity physical activity, such as brisk walking, daily or at least 3 -4 times weekly BATHING Do not submerge the site into water (bath tub, hot tub, swimming pool, dishes) for 1 week. This can be a source for infection into the blood stream. You may shower after 24 hours SITE CARE: After 24 hours, you may remove the dressing and leave the site open to air. Keep the site clean and dry. Clean gently and pat dry. You can expect bruising and tenderness that gradually resolve within a week or two. Return to work as instructed per your physician Resume driving as instructed per physician Keep all scheduled follow up appointments Resume medications as instructed IMPORTANT: If prescribed a Platelet Aggregation Inhibitor such as, Plavix, Brilinta or Effient: Duration of therapy is minimum one year These medications are often used in combination with Aspirin in prevention of future heart attacks Never discontinue unless consult with your Business Process Coordinator STROKE (CVA) Risk factors for a stroke are: Age, cigarette smoking, diabetes, excessive alcohol consumption, family history, high blood pressure, overweight, physical inactivity, prior stroke, heart attack, diagnosis of carotid artery stenosis or other artery disease. Warning signs: Sudden numbness or weakness of the face, arm or leg; especially on one side of the body, sudden confusion, trouble speaking or understanding, sudden trouble seeing in one or both eyes, sudden trouble walking, dizziness, loss of balance or coordination, sudden severe headache with no cause. Call 911 or go to the Emergency Room. CONGESTIVE HEART FAILURE: If you have been diagnosed with Congestive Heart Failure (CHF) and your symptoms return, make an appointment with your physician Weigh yourself daily. Notify your physician if you have a weight gain of two or more pounds in one day or five or more pounds in one week. If you experience any difficulty breathing, please call 911 BLEEDING: Although the risk of bleeding is minimal, it can happen. If you have any bleeding from the site, apply firm pressure above the puncture site for 10-15 minutes. If the bleeding does not stop, continue manual pressure and call 911 Contact [facility] ( ) if: You develop a fever greater than 101 degrees Fahrenheit Your site becomes reddened or has any drainage You have an increase in pain or burning at the site or if a large knot forms at the site. If you experience chest pain, shortness of breath, dizziness, or extreme tiredness, stop the activity and rest. Please notify [facility] office if you experience any of these symptoms and they are not relieved by rest please call 911! - Diet and Activity Activity: increase activity as tolerated Diet: low fat, low cholesterol
--- NOTE | 2017-07-10 16:39 | Electrocardiograph Report ---
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
--- NOTE | 2017-07-10 16:40 | Electrocardiograph Report ---
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
== END 2017-07-10 11:44 | disposition home or self-care (01) | DRG 247 ==
LOC: EMEROO 17:08 → ICNU 17:25 → 2NENU 07-09 18:32
PROVIDERS: ADMIT Emergency Medicine; ATTEND Emergency Medicine